=== PATIENT | female | born 1960 | race Caucasian/White ===

== ENCOUNTER 2018-06-30 23:36 | Emergency (ER) | payer MEDICARE, MEDICAID ==
[2018-07-01 00:28] LABS: #Basophils 0.1 thou/uL (0.0-0.2); #Eosinphils 0.2 thou/uL (0.0-0.7); #Lymphocytes 2.9 thou/uL (1.20-3.40); #Monocytes 0.7 thou/uL (0.11-0.59); #Neutrophils 6.1 thou/uL (1.40-6.50); %Basophils 0.7 % (0.0-1.0); %Eosinophils 1.7 % (0.0-10.0); %Lymphocytes 28.7 % (21.0-51.0); %Monocytes 7.2 % (0.0-10.0); %Neutrophils 61.7 % (42.0-75.0); Hemoglobin 12.5 g/dL (12.0-16.0); Mean Corpuscular HGB CONC 33.3 g/dL (32.0-36.0); Mean Corpuscular Hemoglobin 30.5 pg (27.0-31.0); Mean Corpuscular Volume 91.5 fL (78.0-98.0); Mean Platelet Volume 7.3 fL (7.4-10.4); Platelet Count 247 thou/uL (130-400); RBC Distribution Width 12.7 % (11.5-14.5); White Blood Cell (WBC) Count 9.9 thou/uL (4.8-10.8)
[2018-07-01 00:57] LABS: Acetaminophen Less than 6.0 mcg/mL (10.0-30.0); Alcohol Less than 10 mg/dL (Less than 10); Lipase 26 U/L (8-78); Salicylate Less than 8.0 mg/dL (15.0-30.0)
[2018-07-01 00:59] LABS: ALT (SGPT) 25 U/L (8-55); AST (SGOT) 28 U/L (5-34); Albumin 4.6 g/dL (3.5-5.0); Alkaline Phosphatase 115 U/L (40-150); Anion Gap 14 mmol/L (10-20); BUN (Urea Nitrogen) 25 mg/dL (9.8-20.1); Bilirubin, Total 0.3 mg/dL (0.2-1.2); CK (CPK) 366 U/L (29-168); Calc. Creatinine Clearance 0 mL/min (70-130); Calcium 10.2 mg/dL (7.8-10.44); Carbon Dioxide 20 mmol/L (22-29); Chloride 112 mmol/L (98-107); Estimated GFR-MDRD 81; Globulin 2.6 g/dL (2.4-3.5); Glucose 124 mg/dL (70-105); Potassium 3.9 mmol/L (3.5-5.1); Protein, Total 7.2 g/dL (6.0-8.3); Sodium 142 mmol/L (136-145)
[2018-07-01 01:33] LABS: Bilirubin Negative (Negative); Blood, Urine Moderate (Negative); Clarity Slightly Cloudy (Clear); Glucose, Urine (Dipstick) Negative (Negative); Leukocyte Trace (Negative); Nitrite Positive (Negative); Protein, Urine (Dipstick) 30 mg/dL (Neg-Trace); Specific Gravity, Urine 1.025 (1.005-1.030); Urobilinogen 0.2 mg/dL (0.2-1.0); pH, Urine 6.5 (5.0-9.0)
[2018-07-01 01:35] LABS: Bacteria/HPF 4+ HPF (None Seen)
[2018-07-01 01:42] LABS: Amphetamine Detected (NotDetected); Barbiturates Screen Not Detected (NotDetected); Benzodiazepine Screen Not Detected (NotDetected); Cocaine Metabolite Screen Not Detected (NotDetected); Medtox Control Line Valid? VALID (VALID); Methadone Not Detected (NotDetected); Methamphetamine Not Detected (NotDetected); Opiate Screen Not Detected (NotDetected); Oxycodone Screen Not Detected (NotDetected); Phencyclidine (PCP) Not Detected (NotDetected); THC/Cannabinoid Screen Not Detected (NotDetected); Tricyclic Screen Not Detected (NotDetected)
--- NOTE | 2018-07-01 08:22 | RAD ---
PORTABLE CHEST: INDICATION: Cough. COMPARISON: 01/10/2017. FINDINGS: Lungs appear well aerated and clear of infiltrate. Vascular markings normal. Heart and mediastinum unremarkable. Operative clips in the left axilla again noted and overlying the left hilum. IMPRESSION: No acute finding or significant interval change. POS: OFF
== END 2018-07-01 05:09 ==
LOC: NAV ERS 23:36
DX: F32.9 Major depressive disorder, single episode, unspecified (principal); N39.0 Urinary tract infection, site not specified; F17.210 Nicotine dependence, cigarettes, uncomplicated; Z79.899 Other long term (current) drug therapy
CPT/HCPCS: 36415; 51701; 71045; 80053; 80178; 80306; 80307; 81003; 81015; 82140; 82550; 83690; 84443; 84484; 85025; 93005; 96360; A4353